=== PATIENT | female | born 1990 | race Caucasian/White ===

== ENCOUNTER 2017-08-15 16:02 | Emergency (ER) | payer BC ==
--- NOTE | 2017-08-15 16:17 | PDOC ---
History of Present Illness - General Chief Complaint: Pain Stated Complaint: LEFT FOOT PAIN Time Seen by Provider: 08/15/17 16:08 - History of Present Illness Initial Comments: 08/15/17 17:23 Chief complaint: Pain left foot History of present illness: Patient states that last night while clowning around she struck her left foot against friends knee. Since then she has had pain over the dorsum of the foot, worse with movement of the toes. She is ambulating but pain is aggravated by weightbearing and walking. She did not fall and has no other injuries Physical exam alert DISTRESS Left foot: No obvious deformity, swelling, or instability. No skin injury. No tenderness of the malleoli or the fifth metatarsal. Mild tenderness over the dorsum of the foot, anterior ligaments. Achilles intact and strong. No ankle swelling, deformity, or instability Impression: Sprain of the foot Plan: X-ray to rule out fracture. Symptomatic treatment and follow-up orthopedics as needed. Past History - Past Medical History Allergies/Adverse Reactions: Allergies Allergy/AdvReac Type Severity Reaction Status Date / Time No Known Allergies Allergy Verified 08/15/17 16:03 Home Medications: Ambulatory Orders NK [No Known Home Medication] 08/15/17 Medical Decision Making - Medical Decision Making 08/15/17 17:55 X-rays negative Otby wrap applied. Patient more comfortable. Instructed on use of Toby ice elevation and Advil. Follow-up orthopedist as needed. Adequately ambulatory upon discharge. No severe pain. *DC/Admit/Observation/Transfer Diagnosis at time of Disposition: Sprain of foot, left Qualifiers: Encounter type: initial encounter Qualified Code(s): S93.602A - Unspecified sprain of left foot, initial encounter - Discharge Dispostion Disposition: HOME Condition at time of disposition: Improved Admit: No - Referrals Referrals: Daniel Miranda MD [Staff Physician] - 1 week - Patient Instructions Printed Discharge Instructions: How to Apply an Toby Wrap, DI for Foot Sprain Additional Instructions: Rest, ice, elevate, ibuprofen or Naprosyn for pain and swelling. Toby wrap for compression, loosening periodically. Limited standing and walking for 2-3 days. If pain persists, consult control specialist for further evaluation and treatment - Post Discharge Activity Forms/Work/School Notes: Back to Work
[2017-08-15 16:27] VITALS: BP 119/74; PULSE 102; TEMP 98; BMI 36.3
== END 2017-08-15 18:12 | disposition home or self-care (01) ==
LOC: FER 16:02
DX: S93.602A Unspecified sprain of left foot, initial encounter (principal); W51.XXXA Accidental striking against or bumped into by another person, initial encounter; Y93.89 Activity, other specified; Y92.9 Unspecified place or not applicable
CPT/HCPCS: 73630-TC-LT; 84703; 99282-25